=== PATIENT | female | born 1960 | race Caucasian/White ===

== ENCOUNTER → 2016-10-08 | Outpatient (CLI) | payer MEDICAID ==
[~2016-10-08] MED LIST: ATIVAN GENERIC 11 MG OR; CIPRO 250MG TA250 MG PO; FIORICET 325 MG1 TAB PO; IBUPROFEN800 MG PO; NADOLOL 20 MG T20 MG PO; PRILOSEC20 M1 PO; VALIUM10 MG OR; [UNRECOGNIZED DRUG - OTHER] PO
[2016-10-08 11:56] LABS: BUN 12 mg/dL (7-18)
[2016-10-08 12:26] LABS: GFR (ESTIMATED) 65 ML/MIN (59-)
== END ==
LOC: LAB 08:32
PROVIDERS: Nurse Practitioner Family
DX: I10 Essential (primary) hypertension (principal)